=== PATIENT | female | born 1970 | race African-American/Black ===

== ENCOUNTER → 2016-04-15 | Day surgery (SDC) | payer MEDICARE, OTHER ==
[~2016-04-15] MED LIST: BUPIVACAINE/EPINEPHRINE 0.5% PF 30 ML VIAL ONE; CLINDAMYCIN PHOS 600 MG/4 ML VIAL ONE; KETOROLAC TROMETHAMINE 30 MG/ML (IVP) VIAL IV PUSH ONE; LACTATED RINGER'S 1000 ML INJ 1,000 ML ONE; ONDANSETRON HCL 4 MG/2 ML VIAL IV PUSH ONE; PROPOFOL 100 MG/10 ML INJ IV ONE; TRIAMCINOLONE ACETONIDE 40 MG/ML VIAL ONE; Z.0.NO CURRENT MEDS
--- NOTE | 2016-04-17 05:24 | MP ---
cc: NILTON DEL ROSARIO M.D. DATE OF SURGERY April 15, 2016. PREOPERATIVE DIAGNOSIS Right knee medial meniscal tear. POSTOPERATIVE DIAGNOSIS 1. Right knee medial meniscal tear. 2. Chondromalacia of the medial femoral condyle and patella. SURGEON Dr. Nilton Del Rosario PROFESSOR OF SPORT MANAGEMENT Nikko Rubi, PRE K SPECIAL EDUCATION TEACHER PROCEDURE Right knee arthroscopy with partial medial meniscectomy and chondroplasty of the medial femoral condyle and patella. The surgical procedure was assisted by my Advanced Registered Nurse Practitioner. My PRE K SPECIAL EDUCATION TEACHER's presence was necessary throughout this case for the manipulation and positioning of the surgical extremity. My PRE K SPECIAL EDUCATION TEACHER was assisting me throughout the duration of this procedure. The skill set of an Advanced Registered Nurse Practitioner was medically necessary to complete this procedure. During the surgical case, the surgical services director was working at the back table and the Advanced Registered Nurse Practitioner was directly assisting me. ESTIMATED BLOOD LOSS Minimal. ANESTHESIA General anesthesia. TOURNIQUET TIME 0 minutes. PROCEDURE The patient was brought back to the operative theater. General anesthesia was administered. She received intravenous clindamycin and the right lower extremity was prepped and draped in usual sterile fashion. The patient had previous transverse incision which we went through on the lateral side, followed by inferomedial portal established as well as spinal needle visualization. We found severe synovitis in the suprapatellar pouch along with synovitis anterior to the anterior cruciate ligament. We debrided the synovitis in front of the ACL. The ACL was found to be intact. The patella had grade 3 chondromalacia of an extensive degree with multiple unstable segments of cartilage. The trochlea had grade 2 chondromalacia. The medial femoral condyle did have extensive grade 3 chondromalacia although there was only a small area of unstable segments in the very posterior lateral portion of the medial femoral condyle. We did perform a chondroplasty of this region using the oscillating shaver. Ultimately, only a very small amount of cartilage was removed. There was a small complex tear inner edge of the medial meniscus about the junction of the posterior body and midbody; this was debrided using oscillating shaver to perform partial medial meniscectomy, ultimately only removed about 15% of the meniscus. We probed the rest of the meniscus to make sure there was no further deep tears or instability. The lateral compartment had a little bit of fraying of the inner edge of the lateral meniscus. No meniscal shaving was required. I do not appreciate significant chondromalacia of the lateral femoral condyle. There were no loose bodies in the gutters either medially or laterally. We did find some debris, cartilaginous in nature that was floating on the suprapatellar pouch. We evacuated all this. We gave intraarticular injection of 0.25% Marcaine with 40 mg of Kenalog. All portals were closed with 2-0 Vicryl followed by 3-0 nylon. Postoperative plan is weight-bear as tolerated, early range of motion. MD CHHAYA Mendez/ANGELINA /2:45 PM /5:15 AM
== END | disposition home or self-care (01) ==
LOC: ESDC 12:47
PROVIDERS: ATTEND Orthopaedic Surgery
DX: S83.231A Complex tear of medial meniscus, current injury, right knee, initial encounter (principal); M94.261 Chondromalacia, right knee
CPT/HCPCS: 01400; 29881; J1885; J2405; J3010; J3301; J7120